=== PATIENT | male | born 1990 | race Caucasian/White ===

== ENCOUNTER → 2016-08-25 | Outpatient (REF) ==
[~2016-08-25] MED LIST: BACL10TA2 PO; CELE40TA PO; CENTTAB47 PO; CLON1TAB PO; GABA-282 PO; OXYC1TAB16 PO; OXYC60TA8 PO; PROZ20CA11 PO; SENN8.6T7 PO; TEMA30CA PO
--- NOTE | 2016-08-25 15:33 | REP ---
PARTIAL LUMBAR SPINE, THREE VIEWS: HISTORY: Degenerative disc disease. There is no acute fracture or subluxation. The L3-4 through L5-S1 intervertebral discs are decreased in height consistent with disc degeneration. There are 3 mm of retrolisthesis of L5 on S1. IMPRESSION: Degenerative change as described above. Signed by Gumaro Shin MD 08/25/2016 03:40 P
== END ==
LOC: M SMT 14:10
PROVIDERS: ATTEND Internal Medicine
DX: Z02.71 Encounter for disability determination (principal); M51.36 Other intervertebral disc degeneration, lumbar region; M51.37 Other intervertebral disc degeneration, lumbosacral region

== ENCOUNTER → 2017-08-03 | Outpatient (REF) | payer OTHER, MEDICAID ==
[2017-08-11 10:13] LABS: AMPHETAMINE SCREEN, URINE Negative ng/mL (Cutoff=1000); BARBITURATES SCREEN, URINE Negative ng/mL (Cutoff=200); BENZODIAZEPINES, URINE SCREEN Negative ng/mL (Cutoff=200); CANNABINOID SCREEN, URINE Negative ng/mL (Cutoff=20); COCAINE SCREEN, URINE Negative ng/mL (Cutoff=300); CREATININE, URINE 95.3 mg/dL (20.0-300.0); FENTANYL URINE SCREEN Negative pg/mL (Cutoff=2000); METHADONE, URINE SCREEN Negative ng/mL (Cutoff=300); NALOXONE RESULT Positive (.); OPIATE SCREEN, URINE Negative ng/mL (Cutoff=300); OXYCODONE, SCREEN, URINE Negative ng/mL (Cutoff=100); PCP SCREEN, URINE Negative ng/mL (Cutoff=25); SPECIFIC GRAVITY, URINE 1.008 (.); URINE BUPRENORPHINE Positive (.); URINE BUPRENORPHINE Positive (Cutoff=10); URINE BUPRENORPHINE See Final Results ng/mL (Cutoff=10); URINE BUPRENORPHINE CONFIRM 158 ng/mL (Cutoff=10); URINE NORBUPRENORPHINE Positive (.); URINE NORBUPRENORPHINE CONFIRM 386 ng/mL (Cutoff=10); pH, URINE 5.2 (4.5-8.9)
== END ==
LOC: M LAB REF 19:22
DX: F11.21 Opioid dependence, in remission (principal)

== ENCOUNTER → 2017-08-10 | Outpatient (REF) | payer OTHER, MEDICAID ==
[2017-08-23 08:06] LABS: AMPHETAMINE SCREEN, URINE Negative ng/mL (Cutoff=1000); BARBITURATES SCREEN, URINE Negative ng/mL (Cutoff=200); BENZODIAZEPINES, URINE SCREEN Negative ng/mL (Cutoff=200); CANNABINOID SCREEN, URINE Negative ng/mL (Cutoff=20); COCAINE SCREEN, URINE Negative ng/mL (Cutoff=300); CREATININE, URINE 238.2 mg/dL (20.0-300.0); FENTANYL URINE SCREEN Negative pg/mL (Cutoff=2000); METHADONE, URINE SCREEN Negative ng/mL (Cutoff=300); NALOXONE RESULT Positive (.); OPIATE SCREEN, URINE Negative ng/mL (Cutoff=300); OXYCODONE, SCREEN, URINE Negative ng/mL (Cutoff=100); PCP SCREEN, URINE Negative ng/mL (Cutoff=25); URINE BUPRENORPHINE Positive (.); URINE BUPRENORPHINE Positive (Cutoff=10); URINE BUPRENORPHINE See Final Results ng/mL (Cutoff=10); URINE BUPRENORPHINE CONFIRM 278 ng/mL (Cutoff=10); URINE NORBUPRENORPHINE Positive (.); URINE NORBUPRENORPHINE CONFIRM 736 ng/mL (Cutoff=10); pH, URINE 5.3 (4.5-8.9)
== END ==
LOC: M LAB REF 09:11
DX: F11.21 Opioid dependence, in remission (principal)

== ENCOUNTER 2018-09-05 00:44 | Emergency (ER) | payer MEDICAID, OTHER ==
[~2018-09-05] VITALS: Ht 172.7 cm; Wt 122.7 kg
[~2018-09-05 00:44] MED LIST changes: -CLON1TAB PO; +CLON1TAB8 PO; -GABA-282 PO; +GABA-843 PO; +OXYC10TA3 PO; -OXYC1TAB16 PO; +SENN1TAB41 PO; -SENN8.6T7 PO
[2018-09-05 01:44] LABS: HEMATOCRIT 41.5 % (42.0-52.0); HEMOGLOBIN 13.8 g/dl (13.5-17.5); MEAN CORPUSCULAR HEMOGLOBIN 30.1 pg (27.0-33.0); MEAN CORPUSCULAR HGB CONC 33.3 g/dl (32.0-36.5); MEAN CORPUSCULAR VOLUME 90.4 fl (80.0-96.0); PLATELET COUNT, AUTOMATED 251 10^3/uL (150-450); RED BLOOD COUNT 4.59 10^6/uL (4.30-6.10)
[2018-09-05] MEDS ORDERED: DOXY100C37 PO (02:09)
[2018-09-05] MEDS ORDERED: DOXYCYCLINE HYCLATE 100 MG TAB PO ONE (02:15)
[2018-09-05 02:16] LABS: ALBUMIN 3.5 GM/DL (3.2-5.2); ALT/SGPT 85 U/L (12-78); BILIRUBIN,TOTAL 0.5 MG/DL (0.2-1.0); BLOOD UREA NITROGEN 8 MG/DL (7-18); CARBON DIOXIDE LEVEL 28 MEQ/L (21-32); CHLORIDE LEVEL 103 MEQ/L (98-107); GLOMERULAR FILTRATION RATE > 60.0 (>60); GLUCOSE, FASTING 99 MG/DL (70-100); POTASSIUM SERUM 3.9 MEQ/L (3.5-5.1); SODIUM LEVEL 139 MEQ/L (136-145); TOTAL PROTEIN 7.9 GM/DL (6.4-8.2)
[2018-09-05 02:20] VITALS: BP 144/90
== END 2018-09-05 02:22 | disposition home or self-care (01) ==
LOC: M ED 00:44
DX: L03.113 Cellulitis of right upper limb (principal); Z79.899 Other long term (current) drug therapy; F17.210 Nicotine dependence, cigarettes, uncomplicated; F19.20 Other psychoactive substance dependence, uncomplicated

== ENCOUNTER 2019-03-05 14:23 | Emergency (ER) | payer MEDICARE, OTHER ==
[~2019-03-05] VITALS: Ht 177.8 cm; Wt 97.2 kg
[~2019-03-05 14:23] MED LIST changes: +DOXY100C37 PO
[2019-03-05 15:13] LABS: HEMATOCRIT 51.9 % (42.0-52.0); HEMOGLOBIN 16.8 g/dl (13.5-17.5); MEAN CORPUSCULAR HEMOGLOBIN 29.4 pg (27.0-33.0); MEAN CORPUSCULAR HGB CONC 32.4 g/dl (32.0-36.5); MEAN CORPUSCULAR VOLUME 90.7 fl (80.0-96.0); PLATELET COUNT, AUTOMATED 225 10^3/uL (150-450); RED BLOOD COUNT 5.72 10^6/uL (4.30-6.10); WHITE BLOOD COUNT 12.7 10^3/uL (4.0-10.0)
[2019-03-05 15:40] LABS: AMPHETAMINES LEVEL URINE POSITIVE (NEGATIVE); BARBITURATES URINE NEGATIVE (NEGATIVE); BENZODIAZEPINES URINE NEGATIVE (NEGATIVE); CANNABINOIDS URINE POSITIVE (NEGATIVE); COCAINE METABOLITE URINE POSITIVE (NEGATIVE); METHADONE URINE NEGATIVE (NEGATIVE); OPIATES URINE NEGATIVE (NEGATIVE); PHENCYCLIDINE URINE NEGATIVE (NEGATIVE)
[2019-03-05 15:53] LABS: ACETAMINOPHEN LEVEL < 2.0 UG/ML (10.0-30.0); ALBUMIN 4.2 GM/DL (3.2-5.2); ALT/SGPT 111 U/L (12-78); BILIRUBIN,DIRECT 0.2 MG/DL (0.0-0.2); BILIRUBIN,TOTAL 0.5 MG/DL (0.2-1.0); BLOOD UREA NITROGEN 11 MG/DL (7-18); CALCIUM LEVEL 9.8 MG/DL (8.5-10.1); CARBON DIOXIDE LEVEL 27 MEQ/L (21-32); CHLORIDE LEVEL 102 MEQ/L (98-107); CREATININE FOR GFR 1.21 MG/DL (0.70-1.30); ETHYL ALCOHOL (ETHANOL) < 0.003 % (0.000-0.010); GLOMERULAR FILTRATION RATE > 60.0 (>60); GLUCOSE, FASTING 148 MG/DL (70-100); POTASSIUM SERUM 3.8 MEQ/L (3.5-5.1); SALICYLATE LEVEL 4.2 MG/DL (5.0-30.0); SODIUM LEVEL 140 MEQ/L (136-145); THYROID STIMULATING HORMONE 0.503 uIU/ML (0.358-3.740); TOTAL PROTEIN 8.4 GM/DL (6.4-8.2)
--- NOTE | 2019-03-05 20:12 | ECGEPIP ---
[facility] - ED Test Date: 2019-03-05 Pat Name: MALLORY HENSON Department: Room: - Gender: Male [employer]: : 1990 Requested By: Keith Andrade Order Number: [id number] Reading MD: Dane Figueroa Measurements Intervals [place] Rate: 80 P: 64 IA: 151 QRS: 61 QRSD: 84 T: 67 QT: 346 QTc: 401 Interpretive Statements SINUS RHYTHM NO PRIORS FOR COMPARISON Electronically Signed on 03-05-2019 20:11:55 EST by Dane Figueroa
[2019-03-05 23:47] VITALS: BP 114/64
[2019-03-09 10:36] LABS: HEPATITIS B SURFACE ANTIGEN NEGATIVE (NEGATIVE)
[2019-03-09 11:03] LABS: HEPATITIS B CORE ANTIBODY IGM NEGATIVE (NEGATIVE)
[2019-03-09 11:05] LABS: HEPATITIS A ANTIBODY IGM NEGATIVE (NEGATIVE)
[2019-03-09 14:11] LABS: HEPATITIS C VIRUS ABY INDEX 10.4 INDEX (<0.8)
== END 2019-03-05 23:49 ==
LOC: M ED 14:23
DX: R45.851 Suicidal ideations (principal); F13.10 Sedative, hypnotic or anxiolytic abuse, uncomplicated; F14.10 Cocaine abuse, uncomplicated; F15.10 Other stimulant abuse, uncomplicated; F17.200 Nicotine dependence, unspecified, uncomplicated; F19.10 Other psychoactive substance abuse, uncomplicated; Z59.0 Homelessness

== ENCOUNTER 2019-04-17 23:30 | Emergency (ER) | payer MEDICARE ==
[~2019-04-17] VITALS: Ht 177.8 cm; Wt 110.3 kg
[2019-04-18 00:15] LABS: BASO % 0.3 % (0.0-1.0); EOS # 0.1 10^3/uL (0.0-0.5); EOS % 0.4 % (0.0-3.0); HEMATOCRIT 46.4 % (42.0-52.0); HEMOGLOBIN 14.9 g/dl (13.5-17.5); LYMPH # 3.3 10^3/uL (1.5-5.0); LYMPH % 27.9 % (24.0-44.0); MEAN CORPUSCULAR HEMOGLOBIN 29.8 pg (27.0-33.0); MEAN CORPUSCULAR HGB CONC 32.1 g/dl (32.0-36.5); MEAN CORPUSCULAR VOLUME 92.8 fl (80.0-96.0); MONO # 1.4 10^3/uL (0.0-0.8); MONO % 11.9 % (0.0-5.0); NEUTROPHILS % 59.1 % (36.0-66.0); PLATELET COUNT, AUTOMATED 242 10^3/uL (150-450); WHITE BLOOD COUNT 11.9 10^3/uL (4.0-10.0)
[2019-04-18 00:39] LABS: BLOOD UREA NITROGEN 21 MG/DL (7-18); CALCIUM LEVEL 9.4 MG/DL (8.5-10.1); CARBON DIOXIDE LEVEL 33 MEQ/L (21-32); CHLORIDE LEVEL 106 MEQ/L (98-107); CK-MB VALUE MASS 1.8 NG/ML (<3.6); CPK CREATINE PHOSPHOKINASE 482 U/L (39-308); CREATININE FOR GFR 1.13 MG/DL (0.70-1.30); GLOMERULAR FILTRATION RATE > 60.0 (>60); GLUCOSE, FASTING 83 MG/DL (70-100); MB/CK RELATIVE INDEX 0.37 (< OR =4); POTASSIUM SERUM 4.1 MEQ/L (3.5-5.1); SODIUM LEVEL 142 MEQ/L (136-145); TROPONIN I < 0.02 NG/ML (< 0.10)
[2019-04-18] MEDS ORDERED: NAPR-837 PO (01:42)
[2019-04-18] MEDS ORDERED: KETOROLAC 30 MG/ML VIAL (J1885) IV ONE (01:45)
[2019-04-18 02:09] VITALS: BP 122/56
--- NOTE | 2019-04-18 07:25 | REP ---
PA and lateral chest: There are no comparisons. The lung soto are clear. The cardiac size is normal. The wyatt, mediastinum, and skeletal structures are unremarkable. Impression: Negative PA and lateral chest. Electronically Signed by Baldo Payton MD 04/18/2019 07:16 A
--- NOTE | 2019-04-18 15:01 | ECGEPIP ---
[facility] - ED Test Date: 2019-04-17 Pat Name: MALLORY HENSON Department: Room: - Gender: Male [employer] Experience Strategy: MED[place] : 1990 Requested By: MONET Sanderson Order Number: [id number] Reading MD: Bethany Borges Measurements Intervals [place] Rate: 104 P: 61 FL: 152 QRS: 54 QRSD: 91 T: 39 QT: 325 QTc: 428 Interpretive Statements SINUS TACHYCARDIA ABNORMAL RHYTHM ECG INCREASED RATE 03/05/19 Electronically Signed on 04-18-2019 15:00:46 EST by Bethany Borges
== END 2019-04-18 02:26 | disposition home or self-care (01) ==
LOC: M ED 23:30
DX: R07.89 Other chest pain (principal); B19.20 Unspecified viral hepatitis C without hepatic coma; G89.29 Other chronic pain; M54.9 Dorsalgia, unspecified; F17.210 Nicotine dependence, cigarettes, uncomplicated
CPT/HCPCS: 71046; 80048; 82550; 82553; 84484; 85025; 93005; 93041; 94760; 96374; 99284; J1885

== ENCOUNTER → 2019-06-05 | Outpatient (REF) | payer MEDICARE ==
[~2019-06-05] MED LIST changes: +NAPR-837 PO
[2019-06-05 12:12] LABS: ALBUMIN 4.3 GM/DL (3.2-5.2); ALT/SGPT 51 U/L (12-78); BILIRUBIN,TOTAL 0.4 MG/DL (0.2-1.0); BLOOD UREA NITROGEN 12 MG/DL (7-18); CALCIUM LEVEL 9.7 MG/DL (8.5-10.1); CARBON DIOXIDE LEVEL 29 MEQ/L (21-32); CHLORIDE LEVEL 107 MEQ/L (98-107); GLOMERULAR FILTRATION RATE > 60.0 (>60); GLUCOSE, FASTING 73 MG/DL (70-100); SODIUM LEVEL 140 MEQ/L (136-145); TOTAL PROTEIN 8.5 GM/DL (6.4-8.2)
[2019-06-06 08:32] LABS: HEPATITIS B SURFACE ANTIBODY POSITIVE (POSITIVE)
[2019-06-06 08:42] LABS: HEPATITIS B SURFACE ANTIGEN NEGATIVE (NEGATIVE)
[2019-06-06 09:11] LABS: HIV 1&2 SCREEN CENTAUR NEGATIVE (NEGATIVE)
[2019-06-09 00:06] LABS: HEPATITIS A IgG TOTAL Negative (Negative); HEPATITIS B CORE ANTIBODY IGG Negative (Negative); HEPATITIS C QUANTITATION 1011540 IU/mL (.); HEPATITIS C VIRUS GENOTYPE 3 (.)
== END ==
LOC: M SFHCPLAZ 09:53
PROVIDERS: ATTEND Internal Medicine Infectious Disease
DX: B18.2 Chronic viral hepatitis C (principal); Z23 Encounter for immunization
CPT/HCPCS: 36415; 80053; 81596; 86704; 86706; 86708; 87340; 87389; 87522; 87902; 90471; 90472; 90636; 90715; G0463

== ENCOUNTER → 2019-06-06 | Outpatient (REF) | payer MEDICARE | LOC: M SFHCPLAZ 14:08 | PROVIDERS: ATTEND Internal Medicine Infectious Disease | DX: Z53.9 Procedure and treatment not carried out, unspecified reason (principal) ==

== ENCOUNTER → 2019-06-08 | Outpatient (CLI) | payer MEDICARE ==
[2019-06-08 14:05] LABS: BASO % 0.5 % (0.0-1.0); EOS # 0.4 10^3/uL (0.0-0.5); EOS % 4.5 % (0.0-3.0); HEMATOCRIT 48.1 % (42.0-52.0); LYMPH # 2.5 10^3/uL (1.5-5.0); LYMPH % 30.1 % (24.0-44.0); MEAN CORPUSCULAR HEMOGLOBIN 29.4 pg (27.0-33.0); MEAN CORPUSCULAR HGB CONC 33.3 g/dl (32.0-36.5); MEAN CORPUSCULAR VOLUME 88.4 fl (80.0-96.0); MONO # 0.7 10^3/uL (0.0-0.8); MONO % 8.4 % (0.0-5.0); NEUTROPHILS # 4.7 10^3/uL (1.5-8.5); NEUTROPHILS % 56.3 % (36.0-66.0); PLATELET COUNT, AUTOMATED 273 10^3/uL (150-450); RED BLOOD COUNT 5.44 10^6/uL (4.30-6.10); WHITE BLOOD COUNT 8.3 10^3/uL (4.0-10.0)
== END ==
LOC: M LAB 13:32
PROVIDERS: ATTEND Internal Medicine Infectious Disease
DX: B18.2 Chronic viral hepatitis C (principal)

== ENCOUNTER 2019-12-23 10:02 | Emergency (ER) | payer MEDICARE ==
[~2019-12-23] VITALS: Ht 172.7 cm; Wt 85.2 kg
[2019-12-23] MEDS ORDERED: BOOSTRIX/ADACEL VACCINE (DIPHTH/PERTUSS/ACELL/TETANUS) 0.5ML SYR IM ONE (10:30)
[2019-12-23] MEDS ORDERED: IBUPROFEN 800 MG TAB PO ONE (10:30)
[2019-12-23] MEDS ORDERED: LEVO750T13 PO (10:34)
--- NOTE | 2019-12-23 11:12 | REPVR ---
PROCEDURE INFORMATION: Exam: XR Right Foot Complete Exam date and time: 12/23/2019 10:33 AM Age: 29 years old Clinical indication: Injury or trauma; Other: Stepped on nail; Puncture; Foot; Right; Foreign body involvement not specified; Additional info: Stepped on nail R foot TECHNIQUE: Imaging protocol: XR Right foot. Views: 3 or more views. COMPARISON: No relevant prior studies available. FINDINGS: Bones/joints: No acute fracture or dislocation is identified. 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 Soft tissues: The soft tissues appear grossly unremarkable. No radiopaque foreign body is identified. IMPRESSION: No significant abnormality. Electronically signed by: Jim Lakhani On 12/23/2019 11:11:51 AM
[2019-12-23 11:27] LABS: BASO % 0.3 % (0.0-1.0); EOS # 0.1 10^3/uL (0.0-0.5); EOS % 0.5 % (0.0-3.0); HEMATOCRIT 40.4 % (42.0-52.0); HEMOGLOBIN 13.4 g/dl (13.5-17.5); LYMPH # 2.5 10^3/uL (1.5-5.0); LYMPH % 26.8 % (24.0-44.0); MEAN CORPUSCULAR HEMOGLOBIN 29.2 pg (27.0-33.0); MEAN CORPUSCULAR HGB CONC 33.2 g/dl (32.0-36.5); MONO # 0.9 10^3/uL (0.0-0.8); NEUTROPHILS # 5.7 10^3/uL (1.5-8.5); NEUTROPHILS % 62.2 % (36.0-66.0); PLATELET COUNT, AUTOMATED 202 10^3/uL (150-450); RED BLOOD COUNT 4.59 10^6/uL (4.30-6.10); WHITE BLOOD COUNT 9.2 10^3/uL (4.0-10.0)
[2019-12-23 11:56] LABS: ALT/SGPT 121 U/L (12-78); BILIRUBIN,DIRECT 0.2 MG/DL (0.0-0.2); BILIRUBIN,TOTAL 0.7 MG/DL (0.2-1.0)
[2019-12-23 12:36] LABS: BLOOD UREA NITROGEN 10 MG/DL (7-18); CARBON DIOXIDE LEVEL 24 MEQ/L (21-32); CHLORIDE LEVEL 108 MEQ/L (98-107); CREATININE FOR GFR 0.77 MG/DL (0.70-1.30); GLOMERULAR FILTRATION RATE > 60.0 (>60); GLUCOSE, FASTING 88 MG/DL (70-100); POTASSIUM SERUM 3.7 MEQ/L (3.5-5.1); SODIUM LEVEL 142 MEQ/L (136-145)
[2019-12-23] MEDS ORDERED: CLIN150C14 PO (12:57)
[2019-12-23] MEDS ORDERED: NEOSPORIN OINT 0.9 GM PKT TOP ONE (13:00)
[2019-12-23 13:10] VITALS: BP 129/71
== END 2019-12-23 13:05 | disposition home or self-care (01) ==
LOC: M ED 10:02
DX: S91.331A Puncture wound without foreign body, right foot, initial encounter (principal); W45.0XXA Nail entering through skin, initial encounter; Y92.9 Unspecified place or not applicable; Y93.9 Activity, unspecified; Y99.0 Civilian activity done for income or pay; R74.01 Elevation of levels of liver transaminase levels; M51.26 Other intervertebral disc displacement, lumbar region; F16.10 Hallucinogen abuse, uncomplicated; F17.200 Nicotine dependence, unspecified, uncomplicated; F32.9 Major depressive disorder, single episode, unspecified; F41.9 Anxiety disorder, unspecified; Z86.19 Personal history of other infectious and parasitic diseases

== ENCOUNTER 2020-01-05 01:01 | Emergency (ER) | payer MEDICARE ==
[~2020-01-05] VITALS: Ht 172.7 cm; Wt 81.8 kg
[2020-01-05 01:01] VITALS: BP 123/77
[~2020-01-05 01:01] MED LIST changes: +CLIN150C14 PO; +LEVO750T13 PO
[2020-01-05] MEDS ORDERED: AUGMENTIN 875 MG TAB PO ONE (01:15)
[2020-01-05] MEDS ORDERED: MAGIC MOUTHWASH SUSPENSION BTL SSP STA (01:15)
[2020-01-05] MEDS ORDERED: NAPROXEN 250 MG TAB PO ONE (01:15)
[2020-01-05] MEDS ORDERED: MAGICMW SSP (01:17)
[2020-01-05] MEDS ORDERED: AUGM875T28 PO (01:17)
[2020-01-05] MEDS ORDERED: NAPR-837 PO (01:17)
== END 2020-01-05 01:34 | disposition home or self-care (01) ==
LOC: M ED 01:01
DX: K04.7 Periapical abscess without sinus (principal); F17.210 Nicotine dependence, cigarettes, uncomplicated

== ENCOUNTER → 2023-06-09 | Day surgery (SDC) | payer MEDICARE, MEDICAID ==
[~2023-06-09] VITALS: Ht 175.3 cm; Wt 84.6 kg
[~2023-06-09] MED LIST changes: +AUGM875T28 PO; +BUPR1SUB5 SL; +BUPR300T92 PO; -CLIN150C14 PO; +CLIN150C17 PO; +DOXY-443 PO; -DOXY100C37 PO; +EFFE150C3 PO; +GABA-282 PO; -GABA-843 PO; +HEPARIN SOD (PORCINE) 5000UNITS/ML 1ML VIAL/SYRINGE SQ ONE; +LEVO1TAB40 PO; -LEVO750T13 PO; +MAGICMW SSP; -SENN1TAB41 PO; +SENN1TAB85 PO; +ceFAZolin SOD 2 GM in IV 1 EA IV ONE
[2023-06-09 10:54] VITALS: BP 128/93; TEMP 96.6; O2SAT 97
== END | disposition home or self-care (01) ==
LOC: M SDC 10:27
PROVIDERS: ATTEND Surgery
DX: K40.91 Unilateral inguinal hernia, without obstruction or gangrene, recurrent (principal); Z53.09 Procedure and treatment not carried out because of other contraindication

== ENCOUNTER → 2024-05-04 | Outpatient (CLI) | payer MEDICARE, MEDICAID ==
[~2024-05-04] MED LIST changes: +BUPR-597 PO; -BUPR300T92 PO; +DOXY-441 PO; -DOXY-443 PO; +GABA-1172 PO; -GABA-282 PO; -HEPARIN SOD (PORCINE) 5000UNITS/ML 1ML VIAL/SYRINGE SQ ONE; -ceFAZolin SOD 2 GM in IV 1 EA IV ONE
== END ==
LOC: M RAD 10:59
PROVIDERS: ATTEND Family Medicine Addiction Medicine
DX: M79.641 Pain in right hand (principal)

== ENCOUNTER 2024-07-29 17:38 | Emergency (ER) | payer MEDICARE, MEDICAID ==
[~2024-07-29] VITALS: Ht 175.3 cm; Wt 76.6 kg
[~2024-07-29 17:38] MED LIST changes: -BUPR-597 PO; +BUPR-766 PO
[2024-07-29 19:20] LABS: BASO % 0.3 % (0.0-1.0); EOS # 0.1 10^3/uL (0.0-0.5); EOS % 1.1 % (0.0-3.0); HEMATOCRIT 37.5 % (42.0-52.0); HEMOGLOBIN 12.8 g/dl (13.5-17.5); LYMPH # 1.8 10^3/uL (1.5-5.0); LYMPH % 18.5 % (24.0-44.0); MEAN CORPUSCULAR HGB CONC 34.1 g/dl (32.0-36.5); MONO # 0.7 10^3/uL (0.0-0.8); NEUTROPHILS % 72.8 % (36.0-66.0); PLATELET COUNT, AUTOMATED 230 10^3/uL (150-450); RED BLOOD COUNT 4.41 10^6/uL (4.30-6.10); WHITE BLOOD COUNT 9.7 10^3/uL (4.0-10.0)
[2024-07-29 19:27] LABS: ERYTHROCYTE SEDIMENTATION RATE 26 mm/hr (0-15)
[2024-07-29] MEDS: CLINDAMYCIN 900 MG in IV 1 EA IV ONE (20:31)
[2024-07-29] MEDS ORDERED: CLIN-250 PO (20:42)
[2024-07-29 20:58] VITALS: BP 141/65; TEMP 97.6; O2SAT 99
== END 2024-07-29 21:03 | disposition home or self-care (01) ==
LOC: M ED 17:38
DX: L03.011 Cellulitis of right finger (principal); F17.210 Nicotine dependence, cigarettes, uncomplicated; F15.10 Other stimulant abuse, uncomplicated; Z79.2 Long term (current) use of antibiotics
CPT/HCPCS: 73130; 80047; 83605; 85025; 85652; 86140; 87040; 96365; 99284; J0737